=== PATIENT | female | born 1965 | race Caucasian/White ===

== ENCOUNTER 2018-10-11 00:19 | Emergency (ER) | payer OTHER ==
[~2018-10-11] VITALS: Ht 152.4 cm; Wt 65.8 kg
[2018-10-11] MEDS ORDERED: Percocet 5-3251 EACH PO (07:58)
== END 2018-10-11 01:20 | disposition home or self-care (01) ==
LOC: ER 00:19
DX: M25.512 Pain in left shoulder (principal); V49.9XXA Car occupant (driver) (passenger) injured in unspecified traffic accident, initial encounter

== ENCOUNTER 2018-10-11 06:59 | Emergency (ER) | payer OTHER ==
[~2018-10-11] VITALS: Ht 160 cm; Wt 68.0 kg
[2018-10-11] MEDS ORDERED: Percocet 5-3251 EACH PO (07:58)
== END 2018-10-11 08:09 | disposition home or self-care (01) ==
LOC: ER 06:59
DX: M25.512 Pain in left shoulder (principal); V47.9XXA Unspecified car occupant injured in collision with fixed or stationary object in traffic accident, initial encounter